=== PATIENT | female | born 1990 | race Caucasian/White ===

== ENCOUNTER 2018-02-23 07:39 | Day surgery (SDC) | payer OTHER ==
[2018-02-20 08:28] VITALS: BMI 20.5
[2018-02-23] MEDS ORDERED: Midazolam 2 MG/2 ML VIAL ONE (09:05)
[2018-02-23] MEDS ORDERED: Propofol 10 mg/ml Inj (20 ML) ONE (09:06)
[2018-02-23] MEDS ORDERED: Phenylephrine 10 mg/ml Inj ONE (09:23)
[2018-02-23] MEDS ORDERED: Lidocaine Hydrochloride 5 ML INJ ONE (09:23)
[2018-02-23] MEDS ORDERED: HYDROmorphone 0.5 mg/0.5 ml ISec IVP PRN (10:31)
--- NOTE | 2018-02-23 10:42 | PCM.SURG1 ---
Surgeon's Initial Post Op Note - Surgeon's Notes Surgeon: Dr. Baer Mixing Technician: Trever Type of Anesthesia: General LMA Anesthesia Administered By: Dr. Cheney Pre-Operative Diagnosis: 27 yo with Fibroid uterus , menorrhagia, irregular mentrual cycle Operative Findings: Hysteroscopy Myoure D and C Post-Operative Diagnosis: Same as above Operation Performed: hysteroscopy Myosure D and C Specimen/Specimens Removed: EMC, ECC, Polyp Estimated Blood Loss: EBL {In ML}: 10 Blood Products Given: N/A Drains Used: No Drains Post-Op Condition: Good Date of Surgery/Procedure: 02/23/18 Time of Surgery/Procedure: 10:41
[2018-02-23 12:07] VITALS: TEMP 97.6
[2018-02-23 12:33] VITALS: BP 112/68; PULSE 65; RESP 18; O2SAT 99
--- NOTE | 2018-02-24 00:23 | OP ---
PROCEDURE DATE: 02/23/2018 PREOPERATIVE DIAGNOSIS: A 27-year-old female with menorrhagia, irregular menstrual periods, fibroid uterus, and endometrial polyps. POSTOPERATIVE DIAGNOSIS: A 27-year-old female with menorrhagia, irregular menstrual periods, fibroid uterus, and endometrial polyps. PROCEDURES: Hysteroscopy, MyoSure, and dilatation and curettage. SURGEON: Megan Baer MD FINANCIAL MANAGEMENT: None. TYPE OF ANESTHESIA: General LMA. ANESTHESIOLOGIST: Dr. Cheney. FINDINGS: Anteverted uterus, approximately 12 weeks' noted to have multiple leiomyomas,and an endometrial polyp. COMPLICATIONS: None. ESTIMATED BLOOD LOSS: Approximately 10 mL. INTRAVENOUS FLUIDS: 500 mL. SPECIMENS: EMC, ECC, and polyp. DESCRIPTION OF PROCEDURE: The patient was informed of the risk factors, benefits, and alternatives of the procedures. Risk factors included infection, bleeding, damage to surrounding organs and tissue, complications from anesthesia, and possible . After informed consent was obtained and all questions were answered prior to informed consent, she was then taken to the operating room, prepped and draped in a normal sterile fashion, placed in dorsal lithotomy position. A weighted speculum was placed into the vagina. The anterior lip of the cervix was grasped with a single-tooth tenaculum. The uterus was gently sounded to approximately 12 cm. Upon complete uterine dilation, the scope was then introduced, and the surveillance of the uterine cavity was then performed. Upon completion, it was noted that she had an endometrial polyp. The MyoSure device was utilized and activated. Under direct visualization, the polyp was then removed and submitted to Pathology. In that instance, the scope was then removed together with the MyoSure, and fractional D and C was then performed. EMC and ECC were submitted to Pathology. The hysteroscope was then introduced making sure there was no area of perforation. Upon completion, all instruments were removed from the vagina. Instruments and lap counts were all correct x 2. The patient was then taken to recovery room in stable condition and instructed to follow up in the office in approximately two weeks. Megan Baer MD [facility] # [id number] SAMEER[place]
== END 2018-02-23 12:37 | disposition home or self-care (01) ==
LOC: C.SDS 07:39
PROVIDERS: ATTEND Obstetrics & Gynecology
DX: D25.9 Leiomyoma of uterus, unspecified (principal); N84.0 Polyp of corpus uteri; N92.1 Excessive and frequent menstruation with irregular cycle
CPT/HCPCS: 58558; 88305; J1100; J2250; J2370; J2405; J2704; J3010